=== PATIENT | male | born 1995 | race Caucasian/White ===

== ENCOUNTER 2017-01-30 18:44 | Emergency (ER) | payer SELFPAY ==
[2017-01-30 20:11] VITALS: BP 141/89
== END 2017-01-30 20:11 | disposition home or self-care (01) ==
LOC: ED 18:44
DX: J01.90 Acute sinusitis, unspecified (principal); J20.9 Acute bronchitis, unspecified; J45.901 Unspecified asthma with (acute) exacerbation; R19.7 Diarrhea, unspecified; M54.2 Cervicalgia; R11.2 Nausea with vomiting, unspecified; Z79.899 Other long term (current) drug therapy

== ENCOUNTER 2017-05-21 20:00 | Emergency (ER) | payer OTHER ==
[2017-05-21 22:21] VITALS: BP 130/76
== END 2017-05-21 22:21 | disposition home or self-care (01) ==
LOC: ED 20:00
DX: N48.89 Other specified disorders of penis (principal); J45.909 Unspecified asthma, uncomplicated

== ENCOUNTER 2017-05-24 19:35 | Emergency (ER) | payer OTHER ==
[2017-05-24 22:43] VITALS: BP 134/72
== END 2017-05-24 22:43 | disposition home or self-care (01) ==
LOC: ED 19:35
DX: R21 Rash and other nonspecific skin eruption (principal); N48.89 Other specified disorders of penis

== ENCOUNTER 2018-09-24 18:03 | Emergency (ER) | payer SELFPAY ==
[~2018-09-24] VITALS: Ht 172.7 cm; Wt 75.3 kg
[2018-09-24 18:21] VITALS: Ht 172.7 cm; Wt 75.3 kg
[2018-09-24 20:09] VITALS: BP 132/89
== END 2018-09-24 20:09 | disposition home or self-care (01) ==
LOC: ED 18:03
DX: L03.115 Cellulitis of right lower limb (principal); J45.909 Unspecified asthma, uncomplicated
CPT/HCPCS: J0696; J1885

== ENCOUNTER 2018-12-11 18:41 | Emergency (ER) | payer OTHER ==
[2018-12-11 18:46] VITALS: Ht 172.7 cm
[2018-12-11 20:12] LABS: BASOPHIL % 0.4 % (0-2); PLATELET COUNT 280 x10^3mcL (130-400); RED CELL DISTRIBUTION WIDTH 13.1 % (11.5-14.5)
[2018-12-11 20:49] LABS: CARBON DIOXIDE 29.6 mmol/L (21-32); CHLORIDE SERUM 104 mmol/L (98-107); CREATININE SERUM 0.9 mg/dL (0.7-1.3); GFR1 > 60 mL/min; GLUCOSE SERUM 100 mg/dL (74-106); POTASSIUM SERUM 3.9 mmol/L (3.5-5.1); SODIUM SERUM 141 mmol/L (136-145)
[2018-12-11 21:03] LABS: ALBUMIN 4.3 g/dL (3.4-5.0); ALKALINE PHOSPHATASE 80 U/L (46-116); ALT/SGPT 31 U/L (16-63); AST/SGOT 29 U/L (15-37); BILIRUBIN TOTAL 0.78 mg/dL (0.20-1.00); TOTAL PROTEIN, SERUM 8.1 g/dL (6.4-8.2)
[2018-12-11 21:11] VITALS: BP 133/95
== END 2018-12-11 21:28 | disposition home or self-care (01) ==
LOC: ED 18:41
DX: R42 Dizziness and giddiness (principal); J45.909 Unspecified asthma, uncomplicated
CPT/HCPCS: 36415

== ENCOUNTER 2019-01-27 18:39 | Emergency (ER) | payer OTHER ==
[~2019-01-27] VITALS: Ht 172.7 cm; Wt 73.9 kg
[2019-01-27 19:21] VITALS: Ht 172.7 cm; Wt 73.9 kg
[2019-01-27 23:11] VITALS: BP 154/88
== END 2019-01-27 23:11 | disposition home or self-care (01) ==
LOC: ED 18:39
PROVIDERS: Emergency Medicine
DX: L98.9 Disorder of the skin and subcutaneous tissue, unspecified (principal); N48.29 Other inflammatory disorders of penis; J45.909 Unspecified asthma, uncomplicated
CPT/HCPCS: 87491; 87591

== ENCOUNTER 2019-10-18 16:48 | Emergency (ER) | payer OTHER ==
[~2019-10-18] VITALS: Ht 172.7 cm; Wt 72.6 kg
[2019-10-18 17:02] VITALS: Ht 172.7 cm; Wt 72.6 kg
[2019-10-18 18:01] VITALS: BP 130/67
== END 2019-10-18 18:01 | disposition home or self-care (01) ==
LOC: ED 16:48
DX: S63.612A Unspecified sprain of right middle finger, initial encounter (principal); J45.909 Unspecified asthma, uncomplicated; X58.XXXA Exposure to other specified factors, initial encounter; Y93.89 Activity, other specified; Y92.89 Other specified places as the place of occurrence of the external cause; Y99.8 Other external cause status

== ENCOUNTER 2019-10-19 10:50 | Emergency (ER) | payer OTHER ==
[~2019-10-19] VITALS: Ht 172.7 cm; Wt 74.8 kg
[2019-10-19 10:54] VITALS: BP 133/71; Ht 172.7 cm; Wt 74.8 kg
== END 2019-10-19 11:28 | disposition home or self-care (01) ==
LOC: ED 10:50
DX: S90.465A Insect bite (nonvenomous), left lesser toe(s), initial encounter (principal); J45.909 Unspecified asthma, uncomplicated; W57.XXXA Bitten or stung by nonvenomous insect and other nonvenomous arthropods, initial encounter; Y93.89 Activity, other specified; Y92.89 Other specified places as the place of occurrence of the external cause; Y99.8 Other external cause status

== ENCOUNTER 2019-12-08 19:16 | Emergency (ER) | payer OTHER ==
[~2019-12-08] VITALS: Ht 172.7 cm; Wt 73.0 kg
[2019-12-08 19:26] VITALS: BP 130/81; Ht 172.7 cm; Wt 73.0 kg
== END 2019-12-08 19:51 | disposition home or self-care (01) ==
LOC: ED 19:16
DX: R11.2 Nausea with vomiting, unspecified (principal); R19.7 Diarrhea, unspecified; R03.0 Elevated blood-pressure reading, without diagnosis of hypertension; J45.909 Unspecified asthma, uncomplicated; R10.9 Unspecified abdominal pain
CPT/HCPCS: Q0162

== ENCOUNTER 2020-02-25 09:00 | Emergency (ER) | payer OTHER ==
[~2020-02-25] VITALS: Ht 172.7 cm; Wt 72.6 kg
[2020-02-25 09:13] VITALS: Ht 172.7 cm; Wt 72.6 kg
[2020-02-25 10:10] LABS: BASOPHIL % 0.6 % (0-2); PLATELET COUNT 253 x10^3mcL (130-400); RED CELL DISTRIBUTION WIDTH 13.1 % (11.5-14.5)
[2020-02-25 10:19] LABS: CARBON DIOXIDE 28.2 mmol/L (21-32); CHLORIDE SERUM 103 mmol/L (98-107); CREATININE SERUM 0.9 mg/dL (0.7-1.3); GFR1 > 60 mL/min; GLUCOSE SERUM 96 mg/dL (74-106); POTASSIUM SERUM 3.8 mmol/L (3.5-5.1); SODIUM SERUM 140 mmol/L (136-145)
[2020-02-25 10:24] LABS: ALBUMIN 4.3 g/dL (3.4-5.0); ALKALINE PHOSPHATASE 60 U/L (46-116); ALT/SGPT 25 U/L (16-63); AST/SGOT 16 U/L (15-37); BILIRUBIN TOTAL 1.7 mg/dL (0.20-1.00); LIPASE 67 IU/L (73-393); TOTAL PROTEIN, SERUM 7.5 g/dL (6.4-8.2)
[2020-02-25 13:00] LABS: AMPHETAMINE QUAL UR NONE DETECTED (See below)
[2020-02-25 13:59] VITALS: BP 124/66
== END 2020-02-25 13:59 | disposition home or self-care (01) ==
LOC: ED 09:00
PROVIDERS: Emergency Medicine
DX: J45.909 Unspecified asthma, uncomplicated (principal); R07.89 Other chest pain; F12.20 Cannabis dependence, uncomplicated
CPT/HCPCS: 36415; 85378; G0480; Q0092

== ENCOUNTER 2020-04-23 09:13 | Emergency (ER) | payer OTHER ==
[~2020-04-23] VITALS: Ht 172.7 cm; Wt 73.1 kg
[2020-04-23 09:23] VITALS: Ht 172.7 cm; Wt 73.1 kg
[2020-04-23 12:40] VITALS: BP 157/85
[2020-04-24 07:10] LABS: RAPID PLASMA REAGIN Non Reactive (Non Reactive)
== END 2020-04-23 12:40 | disposition home or self-care (01) ==
LOC: ED 09:13
PROVIDERS: Emergency Medicine
DX: S62.91XA Unspecified fracture of right hand, initial encounter for closed fracture (principal); Z11.3 Encounter for screening for infections with a predominantly sexual mode of transmission; W22.8XXA Striking against or struck by other objects, initial encounter; Y93.89 Activity, other specified; Y92.89 Other specified places as the place of occurrence of the external cause; Y99.8 Other external cause status
CPT/HCPCS: 87491; 87591; A4570